=== PATIENT | female | born 1935 | race Caucasian/White ===

== ENCOUNTER 2019-07-26 08:12 | Emergency (ER) | payer BC ==
[~2019-07-26] VITALS: Ht 162.6 cm; Wt 54.4 kg
[2019-07-26 08:20] VITALS: BP_SYST 163
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
--- NOTE | 2019-07-26 08:20 | NUR ---
Patient to ER bed 4 to gown for evaluation. Side rails up.
--- NOTE | 2019-07-26 08:25 | NUR ---
ER Dr. Harrison at bedside examining patient.
--- NOTE | 2019-07-26 08:40 | NUR ---
EKG performed at bedside by RN, given to MD for interpretation
--- NOTE | 2019-07-26 08:44 | NUR ---
Radiology at bedside performing CXR Addendum: 07/26/19 at 0845 by [email or web address] Radiology is performing Right arm x-ray
[2019-07-26 09:13] LABS: BASOPHILS % (AUTO) 0.5 % (0.0-2.0); EOSINOPHILS # (AUTO) 0.3 K/uL (0.0-0.4); EOSINOPHILS % (AUTO) 4.5 % (0.0-4.0); HEMATOCRIT 33.4 % (36-48); HEMOGLOBIN 11.2 g/dL (12.0-16.0); LYMPHOCYTES # (AUTO) 1.3 K/uL (1.0-5.5); LYMPHOCYTES % (AUTO) 16.9 % (20.5-51.5); MEAN CORPUSCULAR HEMOGLOBIN 30 pg (27-31); MEAN CORPUSCULAR HGB CONC 34 % (32-36); MEAN CORPUSCULAR VOLUME 89 fL (79.0-98.0); MONOCYTES # (AUTO) 0.8 K/uL (0.0-1.0); MONOCYTES % (AUTO) 10.9 % (1.7-9.3); NEUTROPHILS # (AUTO) 5.1 K/uL (1.8-7.7); NEUTROPHILS % (AUTO) 67.2 % (40.0-70.0); PLATELET COUNT (AUTO) 203 K/uL (130-430); RED BLOOD CELL COUNT(AUTO) 3.77 MIL/uL (4.2-6.2); WHITE BLOOD COUNT (AUTO) 7.6 K/uL (4.8-10.8)
[2019-07-26 09:26] LABS: ANION GAP 8 (5-15); CHLORIDE 102 mmol/L (98-107); CREATININE 1.47 mg/dL (0.55-1.30); GLUCOSE 104 mg/dL (70-99); POTASSIUM 3.7 mmol/L (3.5-5.1); SODIUM SERUM 139 mmol/L (136-145); UREA NITROGEN, BLOOD 34 mg/dL (8-21)
[2019-07-26 09:29] LABS: INR 1.1 (0.8-1.2); PROTHROMBIN TIME 11.4 SECS (9.5-12.5)
[2019-07-26 09:31] LABS: ALANINE AMINOTRANSFERASE 25 U/L (12-78); ALBUMIN 3.8 g/dL (3.4-4.8); ASPARTATE AMINOTRANSFERASE 29 U/L (10-37); TOTAL BILIRUBIN 0.5 mg/dL (0.0-1.0)
[2019-07-26] MEDS ORDERED: HYDROcodone/ACETAMIN 5-325 MG TAB (NORCO/ VICODIN) PO ONE (10:15)
--- NOTE | 2019-07-26 10:20 | NUR ---
Patient given written and verbal discharge instructions and verbalizes understanding. ER MD discussed with patient the results and treatment provided. Patient in stable condition. ID arm band removed. Rx of [place] given. Patient educated on pain management and to follow up with PMD. Pain Scale 3. Opportunity for questions provided and answered. Medication side effect fact sheet provided.
[2019-07-26 10:21] VITALS: BP_SYST 163
== END 2019-07-26 10:20 | disposition home or self-care (01) ==
LOC: SED 08:12
DX: S50.11XA Contusion of right forearm, initial encounter (principal); Z88.6 Allergy status to analgesic agent; W18.39XA Other fall on same level, initial encounter; Y93.89 Activity, other specified; Y92.89 Other specified places as the place of occurrence of the external cause; Y99.8 Other external cause status
CPT/HCPCS: 36415; 73090; 80053; 85025; 85610-TC; 85730-TC; 93005; 99285

== ENCOUNTER 2019-08-05 11:05 | Emergency (ER) | payer BC ==
[~2019-08-05] VITALS: Ht 162.6 cm; Wt 54.4 kg
[2019-08-05 11:16] VITALS: BP_SYST 166
--- NOTE | 2019-08-05 11:20 | NUR ---
Patient to ER bed 3 to gown for evaluation. Side rails up.
--- NOTE | 2019-08-05 11:22 | NUR ---
OSVALDO Galan at bedside examining patient.
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
[2019-08-05] MEDS ORDERED: KETOROLAC TROMETHAMINE 30 MG VIAL IM ONE (11:30)
--- NOTE | 2019-08-05 11:48 | NUR ---
Pt getting a venous doppler at the bedside
[2019-08-05 12:55] VITALS: BP_SYST 155
--- NOTE | 2019-08-05 12:55 | NUR ---
Patient given written and verbal discharge instructions and verbalizes understanding. ER MD discussed with patient the results and treatment provided. Patient in stable condition. ID arm band removed. Patient educated on pain management and to follow up with PMD. Pain Scale 5 tolerable. Opportunity for questions provided and answered. Medication side effect fact sheet provided.
== END 2019-08-05 12:55 | disposition home or self-care (01) ==
LOC: SED 11:05
DX: S50.11XA Contusion of right forearm, initial encounter (principal); M79.601 Pain in right arm; J44.9 Chronic obstructive pulmonary disease, unspecified; I48.91 Unspecified atrial fibrillation; Z88.6 Allergy status to analgesic agent; Z85.53 Personal history of malignant neoplasm of renal pelvis; Z86.73 Personal history of transient ischemic attack (TIA), and cerebral infarction without residual deficits
CPT/HCPCS: 93971; 99284